=== PATIENT | male | born 1985 | race American Indian/Alaskan Native ===

== ENCOUNTER 2017-10-29 15:05 | Emergency (ER) | payer MEDICAID ==
[2017-10-29 15:05] VITALS: BMI 39.3
[2017-10-29 16:01] VITALS: TEMP 98.2; O2SAT 99
[2017-10-29 16:18] VITALS: RESP 18
--- NOTE | 2017-10-29 17:01 | ED PDOC ---
Arrival/HPI - General Chief Complaint: Male Genitourinary Time Seen by Provider: 10/29/17 16:07 Historian: Patient - History of Present Illness Narrative History of Present Illness (Text): 10/29/17 16:58 32yo morbidly obese male with PMhx of hypertension who present with hematuria. States he have had lower back and right flank pain x weeks now. States it felt like he had a stone while urinating today and noticed hematuria after squeezing his penis today. He came to ED to be evaluated for possible kidney stone. Denies nausea, vomiting, fever, dysuria, urinary frequency, any other complaint, Past Medical History - Provider Review Nursing Documentation Reviewed: Yes - Infectious Disease Hx of Infectious Diseases: None - Tetanus Immunization Tetanus Immunization: Unknown - Past Medical History Past Medical History: No Previous - Cardiac Hx Hypertension: Yes - Endocrine/Metabolic Other/Comment: Pre-Diabetic - Psychiatric Hx Depression: No Hx Emotional Abuse: No Hx Physical Abuse: No Hx Substance Use: No - Past Surgical History Past Surgical History: No Previous - Suicidal Assessment Feels Threatened In Home Enviroment: No Family/Social History - Physician Review Nursing Documentation Reviewed: Yes Family/Social History: Unknown Family HX Smoking Status: Never Smoked Hx Alcohol Use: Yes Hx Substance Use: No Hx Substance Use Treatment: No Allergies/Home Meds Allergies/Adverse Reactions: Allergies acetaminophen Allergy (Verified 10/29/17 15:56) CONGESTION aspirin Allergy (Verified 10/29/17 15:56) CONGESTION citric acid [From [facility]] Allergy (Verified 10/29/17 15:56) ANGIOEDEMA ibuprofen [From Advil] Allergy (Verified 10/29/17 15:56) CONGESTION sodium bicarbonate [From [facility]] Allergy (Verified 10/29/17 15:56) ANGIOEDEMA Home Medications: Home Meds Medication Instructions Recorded Confirmed Haloperidol [Haldol] 5 mg PO DAILY 10/29/17 10/29/17 amLODIPine [Norvasc] 10 mg PO DAILY 10/29/17 10/29/17 Review of Systems - Physician Review All systems were reviewed & negative as marked: Yes - Review of Systems Constitutional: Normal Eyes: Normal ENT: Normal Respiratory: Normal Cardiovascular: Normal Gastrointestinal: Normal Genitourinary Male: Hematuria. absent: Dysuria, Frequency Musculoskeletal: Normal Skin: Normal Neurological: Normal Endocrine: Normal Hemo/Lymphatic: Normal Psychiatric: Normal Physical Exam Vital Signs Reviewed: Yes Vital Signs Temp Pulse Resp BP Pulse Ox 10/29/17 19:12 79 18 121/74 99 10/29/17 16:13 87 18 122/81 99 10/29/17 15:58 98.2 F 87 17 122/81 99 Temperature: Afebrile Blood Pressure: Normal Pulse: Regular Respiratory Rate: Normal Appearance: Positive for: Well-Appearing, Non-Toxic, Comfortable, Other ( Morbidly obese) Pain Distress: None Mental Status: Positive for: Alert and Oriented X 3 - Systems Exam Head: Present: Atraumatic, Normocephalic Pupils: Present: PERRL Extroacular Muscles: Present: EOMI Conjunctiva: Present: Normal Mouth: Present: Moist Mucous Membranes Neck: Present: Normal Range of Motion Respiratory/Chest: Present: Clear to Auscultation, Good Air Exchange. No: Respiratory Distress, Accessory Muscle Use Cardiovascular: Present: Regular Rate and Rhythm, Normal S1, S2. No: Murmurs Abdomen: No: Tenderness, Distention, Peritoneal Signs, Rebound, Guarding, McBurney's Point Tender, Rovsing's Sign Present Back: Present: Normal Inspection. No: CVA Tenderness Upper Extremity: Present: Normal Inspection. No: Cyanosis, Edema Lower Extremity: Present: Normal Inspection. No: Edema Neurological: Present: GCS=15, CN II-XII Intact, Speech Normal Skin: Present: Warm, Dry, Normal Color. No: Rashes Psychiatric: Present: Alert, Oriented x 3, Normal Insight, Normal Concentration Medical Decision Making ED Course and Treatment: 10/29/17 20:06 Pt in ED for stated history. His PE was benign. Blood was noted in UA, no leukocyte/nitrite. He was placed on Cipro. CT result was DW the pt and he was referred to Urologist. IMPRESSION: No evidence of stones within the kidneys, ureters or bladder. No evidence of obstructive uropathy or obstructive nephropathy. No evidence of bowel obstruction. - Lab Interpretations Lab Results: Lab Results 10/29/17 17:23: Urine Color Yellow, Urine Appearance Clear, Urine pH 6.5, Ur Specific Crapo 1.020, Urine Protein 30 H, Urine Glucose (UA) Negative, Urine Ketones Trace H, Urine Blood Moderate H, Urine Nitrate Negative, Urine Bilirubin Negative, Urine Urobilinogen 1.0 H, Ur Leukocyte Esterase Negative, Urine RBC 20 - 25, Urine WBC 2 - 5, Ur Epithelial Cells 1 - 3, Urine Bacteria Small - RAD Interpretation Radiology Orders: 10/29/17 18:29 ABD & PELVIS W/O PO OR IV CONT [CT] Stat - Medication Orders Current Medication Orders: Discontinued Medications Ciprofloxacin (Cipro) 500 mg PO ONCE STA PRN Reason: Protocol Stop: 10/29/17 20:07 Last Admin: 10/29/17 20:30 Dose: 500 mg Disposition/Present on Arrival - Present on Arrival Any Indicators Present on Arrival: No History of DVT/PE: No History of Uncontrolled Diabetes: No Urinary Catheter: No History of Decub. Ulcer: No History Surgical Site Infection Following: None - Disposition Have Diagnosis and Disposition been Completed?: Yes Diagnosis: Hematuria Disposition: HOME/ ROUTINE Disposition Time: 20:10 Patient Plan: Discharge Condition: STABLE Discharge Instructions (ExitCare): Blood in the Urine (Hematuria) in Adults Additional Instructions: Follow up with Urologist Return to ED for any new symptoms Prescriptions: Ciprofloxacin [Cipro] 500 mg PO BID #14 tab Referrals: Nura Kiser MD [Primary Care Provider] - Follow up with primary Danny Rojo MD [Staff Provider] - Follow up with primary Forms: [email or web address] (Cam[place]onian)
[2017-10-29 18:15] LABS: PH,URINE 6.5 (4.7-8.0); URINE BILIRUBIN NEGATIVE (NEGATIVE); URINE BLOOD MODERATE (NEGATIVE); URINE GLUCOSE (UA) NEGATIVE (NEGATIVE); URINE LEUKOCYTE ESTERASE NEGATIVE Leu/uL (NEGATIVE); URINE PROTEIN 30 mg/dL (<30 mg/dL)
[2017-10-29 18:28] LABS: URINE APPEARANCE CLEAR (CLEAR); URINE COLOR YELLOW (YELLOW)
[2017-10-29 18:46] LABS: URINE RBC 20 - 25 /hpf (0-2)
[2017-10-29 18:47] LABS: URINE BACTERIA SMALL (NEG)
[2017-10-29 19:13] VITALS: BP 121/74; PULSE 79
--- NOTE | 2017-10-30 08:13 | CT ---
PROCEDURE: CT Abdomen and Pelvis without intravenous contrast HISTORY: right flank pain COMPARISON: None. TECHNIQUE: Without contrast. Contrast Dose: Radiation dose: Total exam DLP = Total exam DLP = 1295 mGy-cm. This CT exam was performed using one or more of the following dose reduction techniques: Automated exposure control, adjustment of the mA and/or kV according to patient size, and/or use of iterative reconstruction technique. FINDINGS: LOWER THORAX: Unremarkable. LIVER: Unremarkable. No gross lesion or ductal dilatation. GALLBLADDER AND BILE DUCTS: Unremarkable. PANCREAS: Unremarkable. No gross lesion or ductal dilatation. SPLEEN: Unremarkable. ADRENALS: Unremarkable. No mass. KIDNEYS AND URETERS: Unremarkable. No hydronephrosis. No solid mass. VASCULATURE: Unremarkable. No aortic aneurysm. BOWEL: Unremarkable. No obstruction. No gross mural thickening. APPENDIX: Unremarkable. Normal appendix. PERITONEUM: Unremarkable. No free fluid. No free air. LYMPH NODES: Unremarkable. No enlarged lymph nodes. BLADDER: Unremarkable. REPRODUCTIVE: Unremarkable. BONES: No acute fracture. OTHER FINDINGS: The report concurs with the preliminary [facility] report IMPRESSION: No acute findings. No evidence of urolithiasis.
== END 2017-10-29 20:32 | disposition home or self-care (01) ==
LOC: ED 15:05
DX: R31.9 Hematuria, unspecified (principal); I10 Essential (primary) hypertension; E66.01 Morbid (severe) obesity due to excess calories; R73.03 Prediabetes